=== PATIENT | female | born 1975 | race Caucasian/White ===

== ENCOUNTER 2019-05-17 19:34 | Emergency (ER) | payer MEDICAID, SELFPAY ==
[2019-05-17 19:56] VITALS: BP 103/67; PULSE 111; RESP 18; TEMP 37.1; O2SAT 98; BMI 17.9
--- NOTE | 2019-05-17 19:56 | XRR_ITS ---
PROCEDURE INFORMATION: Exam: XR Chest, 1 View Exam date and time: 05/17/2019 9:00 PM Age: 43 years old Clinical indication: Cough TECHNIQUE: Imaging protocol: XR of the chest Views: 1 view. COMPARISON: CR Chest 1 [place] [id number] 01/16/2019 9:43 AM FINDINGS: Lungs: Left basilar interstitial lung disease. This may represent active interstitial pneumonitis. This was present on examination of 01/16/2019 and thus could reflect interstitial fibrosis, also. COPD/chronic bronchitis/emphysema. Antecedent granulomatous disease. Pleural space: Unremarkable. No pleural effusion. No pneumothorax. Heart/Mediastinum: Arterial sclerosis with microcardia. Bones/joints: Scoliosis. XR/XR chest 1V portable [id number] IMPRESSION: 1. Left basilar interstitial lung disease which could reflect active interstitial pneumonitis or interstitial fibrosis based on clinical presentation. 2. COPD/chronic bronchitis/emphysema.
--- NOTE | 2019-05-17 19:57 | ECG_ITS ---
Measurements Intervals [place] Rate: 108 P: 83 CO: 136 QRS: 89 QRSD: 98 T: 71 QT: 328 QTc: 440 SINUS TACHYCARDIA POSSIBLE LEFT ATRIAL ENLARGEMENT [-0.1mV P WAVE IN V1/V2] POSSIBLE RIGHT VENTRICULAR CONDUCTION DELAY [RSR (QR) IN V1/V2] ABNORMAL RHYTHM ECG Compared to ECG 01/16/2019 09:26:40 Sinus rhythm no longer present Electronically Signed On 05-18-2019 20:47:22 CDT by Delilah Martínez M.D. [id number]
[2019-05-17 20:18] LABS: Basophils % 0.3 %; Eosinophils % 0.1 %; Hematocrit 39.1 % (37.0-47.0); Hemoglobin 12.6 g/dL (11.5-15.3); Lymphocytes # 1.5 10^3/uL (0.8-4.8); Lymphocytes % 9.3 %; Mean Corpuscular HGB Conc 32.2 g/dL (30.0-36.0); Mean Corpuscular Volume 86.9 fL (81-99); Mean Platelet Volume 9.5 fL (7.4-10.4); Monocytes # 1.3 10^3/uL (0.2-0.9); Monocytes % 8.2 %; Neutrophils # 12.8 10^3/uL (1.8-7.7); Neutrophils % 81.7 %; Nucleated Red Blood Cells % 0 %; Platelet Count 413 10^3/cmm (130-400); Red Cell Distribution Width 13.7 % (12.1-15.1); White Blood Count 15.7 10^3/uL (4.0-10.0)
[2019-05-17 20:37] LABS: Troponin(5th) Baseline 6 ng/mL (0-10)
--- NOTE | 2019-05-17 20:37 | W.ED.SOB ---
HPI - SOB/Dyspnea General: Chief Complaint: Shortness of Breath/Dyspnea Stated Complaint: sob Time Seen by Provider: 05/17/19 20:37 History of Present Illness: HPI Narrative: Patient is a 43-year-old female who comes in with shortness of breath and cough. Patient says symptoms started yesterday. She is also complaining of some sinus congestion, dizziness, constipation, nausea and vomiting. She has had one episode of vomiting since yesterday. She also feels like she has some body aches and a headache as well. She has not eaten much today and has only had a couple popsicles. Denies any diarrhea, or chest pain. She does states she feels a little short of breath and has some wheezing. Denies any fevers or chills. Associated symptoms: Reports abdominal pain, nausea and vomiting; Deny chest pain, fever(s), orthopnea or palpitations Review of Systems Const: Reports: body aches and change in appetite (loss of appetite); Denies: fever, chills or fatigue Eyes: Denies: change in vision or eye discomfort ENMT: Reports: nasal congestion and facial/sinus pain; Denies: throat pain, painful swallowing or nasal discharge Card: Denies: chest pain, palpitations, edema, swelling of feet/ankles, shortness of breath on exertion or shortness of breath when lying down Resp: Reports: shortness of breath and non-productive cough; Denies: productive cough GI: Reports: abdominal pain, nausea, vomiting and constipation; Denies: diarrhea or blood in stool : Denies: flank pain, painful urination or blood in urine Musc: Denies: neck pain, back pain or extremity swelling Skin/Breast: Denies: rash or new lesion Neuro: Reports: headache; Denies: numbness in extremities or weakness in extremities PFSH ED PFSH: Social History Smoking and tobacco status: former smoker Physical Exam Const: COMMON NORMALS: oriented x3 HENMT: COMMON NORMALS: normocephalic and external nose normal HEAD & SCALP: normocephalic NOSE: external nose normal and no nasal discharge MOUTH: oral and palatal mucosa normal THROAT: posterior oropharynx normal and uvula midline Neck/C-Spine: COMMON NORMALS: supple GENERAL: Yes normal visual inspection Resp: COMMON NORMALS: normal respiratory effort, no retractions and no use of accessory muscles AUSCULTATION: wheezes (mild) expiratory wheezes, left lower (wheezing) and right lower (wheezing) Cardio: COMMON NORMALS: regular rate, regular rhythm, S1 normal heart sound, S2 normal heart sound, no gallops, no clicks, no murmurs and peripheral pulses 2+ throughout RATE: regular rate RHYTHM: regular rhythm HEART SOUNDS: S1 normal and S2 normal PERIPHERAL PULSES: pulses 2+ throughout GI: COMMON NORMALS: normal to inspection, nondistended, normoactive bowel sounds, soft to palpation and no masses PALPATION: Yes soft and Yes tender Details: LLQ (mild) OTHER: Patient had left lower quadrant abdominal tenderness but no other abdominal tenderness. Negative McBurney's point and negative Conley sign. : COMMON NORMALS: Yes no CVA tenderness BLADDER/KIDNEY EXAM: Yes no CVA tenderness Back/Pelvis: COMMON NORMALS: no CVA tenderness Extremity: COMMON NORMALS: normal to inspection Neuro: COMMON NORMALS: oriented x3 and moves all extremities Skin: COMMON NORMALS: no rashes or lesions noted GENERAL SKIN EXAM: no rashes or lesions noted and dry skin Course Vital Signs: Vital signs: Vital Signs Temperature 98.0 F 05/17/19 23:12 Pulse Rate 84 05/17/19 23:12 Respiratory Rate 20 H 05/17/19 23:12 Blood Pressure 113/65 05/17/19 23:12 Pulse Oximetry 100 05/17/19 23:12 MDM - SOB/Dyspnea MDM Narrative: Medical decision making narrative: Patient is a 43-year-old female who comes into the ED with shortness of breath. Physical exam was remarkable for some wheezing. Labs are remarkable for white blood cell count of 15.7 and a sodium of 132. Influenza was negative. Chest x-ray showed possible left lower lobe pneumonia developing. EKG was normal sinus rhythm and troponins negative. Patient was given IV fluids and a breathing treatment a dose of an antibiotic and steroid as well. Patient was discharged with an antibiotic and a steroid prescription. She was told to follow-up with her PCP in 5 to 7 days for reevaluation. She was told to continue taking all her home meds including her prescribed inhalers. Patient understood and agreed with plan. She was informed to return to the ED if symptoms worsen. Lab Data: Attestation: I reviewed the patient's lab results. Labs: Lab Results 05/17/19 05/17/19 05/17/19 Range/Units 20:00 20:10 20:10 WBC 15.7 H (4.0-10.0) 10^3/ uL RBC 4.50 (4.1-5.3) 10^6/u L Hgb 12.6 (11.5-15.3) g/dL Hct 39.1 (37.0-47.0) % MCV 86.9 (81-99) fL MCH 28.0 (28.0-34.0) pg MCHC 32.2 (30.0-36.0) g/dL RDW 13.7 (12.1-15.1) % Plt Count 413 H (130-400) 10^3/c mm MPV 9.5 (7.4-10.4) fL Neut % (Auto) 81.7 % Lymph % (Auto) 9.3 % [place] % (Auto) 8.2 % Eos % (Auto) 0.1 % Baso % (Auto) 0.3 % Neut # (Auto) 12.8 H (1.8-7.7) 10^3/u L Lymph # (Auto) 1.5 (0.8-4.8) 10^3/u L [place] # (Auto) 1.3 H (0.2-0.9) 10^3/u L Eos # (Auto) 0.0 (0.0-0.8) 10^3/u L Baso # (Auto) 0.0 (0.0-0.1) 10^3/u L Nucleated RBC % (a uto) 0 % Nucleated RBCs # 0.0 /100WBC Sodium 132 L (136-145) mmol/L Potassium 3.8 (3.5-5.1) mmol/L Chloride 98 (98-107) mmol/L Carbon Dioxide 20 L (22-29) mmol/L Anion Gap 17.8 (5-19) BUN 11 (6-20) mg/dL Creatinine 0.8 (0.5-0.9) mg/dL GFR Calculation 78.3 L (90-130) mL/min Glucose 90 (65-115) mg/dL Calculated Osmolal ity 270 L (285-295) mOsm/k g Calcium 9.2 (8.5-10.5) mg/dL Total Bilirubin 0.4 (0.15-1.2) mg/dL AST 10 (0-32) U/L ALT 6 (0-33) U/L Alkaline Phosphata se 85 (35-105) IU/L Troponin T Baselin e (0-10) ng/mL Troponin T 120 Min [place] (0-10) ng/mL Delta Troponin T (0-10) ABS# NT-Pro-B Natriuret Pep 229 H (0-125) pg/mL Total Protein 7.3 (6.6-8.7) g/dL Albumin 3.9 (3.5-5.2) g/dL Globulin 3.4 (1.3-4.6) g/dL Influenza Type A A g Negative (Negative) POC Influenza B Ag Negative (Negative) 05/17/19 05/17/19 Range/Units 20:10 22:10 WBC (4.0-10.0) 10^3/ uL RBC (4.1-5.3) 10^6/u L Hgb (11.5-15.3) g/dL Hct (37.0-47.0) % MCV (81-99) fL MCH (28.0-34.0) pg MCHC (30.0-36.0) g/dL RDW (12.1-15.1) % Plt Count (130-400) 10^3/c mm MPV (7.4-10.4) fL Neut % (Auto) % Lymph % (Auto) % [place] % (Auto) % Eos % (Auto) % Baso % (Auto) % Neut # (Auto) (1.8-7.7) 10^3/u L Lymph # (Auto) (0.8-4.8) 10^3/u L [place] # (Auto) (0.2-0.9) 10^3/u L Eos # (Auto) (0.0-0.8) 10^3/u L Baso # (Auto) (0.0-0.1) 10^3/u L Nucleated RBC % (a uto) % Nucleated RBCs # /100WBC Sodium (136-145) mmol/L Potassium (3.5-5.1) mmol/L Chloride (98-107) mmol/L Carbon Dioxide (22-29) mmol/L Anion Gap (5-19) BUN (6-20) mg/dL Creatinine (0.5-0.9) mg/dL GFR Calculation (90-130) mL/min Glucose (65-115) mg/dL Calculated Osmolal ity (285-295) mOsm/k g Calcium (8.5-10.5) mg/dL Total Bilirubin (0.15-1.2) mg/dL AST (0-32) U/L ALT (0-33) U/L Alkaline Phosphata se (35-105) IU/L Troponin T Baselin e 6 (0-10) ng/mL Troponin T 120 Min [place] 6.00 (0-10) ng/mL Delta Troponin T 0 (0-10) ABS# NT-Pro-B Natriuret Pep (0-125) pg/mL Total Protein (6.6-8.7) g/dL Albumin (3.5-5.2) g/dL Globulin (1.3-4.6) g/dL Influenza Type A A g (Negative) POC Influenza B Ag (Negative) Imaging Data^: CXR: Attestation: I personally reviewed and interpreted this imaging study as follows: My impression: Possible left lower lobe pneumonia developing. Pending final radiology report. EKG Data^: EKG 1: Attestation: I personally reviewed and interpreted this EKG as follows: EKG Interpretation Date: 05/17/19 Interpretation: Sinus rhythm, P waves present, 87 bpm, no ST segment elevation or depression seen. Discharge Plan Discharge Patient Disposition: Home, Self-Care Clinical Impression: Pneumonia Qualifiers: Pneumonia type: due to unspecified organism Laterality: left Lung location: lower lobe of lung Qualified Code(s): J18.9 - Pneumonia, unspecified organism Condition: Stable Prescriptions: New azithromycin 250 mg tablet See Rx Instructions .ROUTE .COMPLEX Qty: 6 RF: 0 prednisone 20 mg tablet 20 mg PO TID 5 Days Qty: 15 RF: 0 No Action montelukast 5 mg tablet,chewable 5 mg PO DAILY RF: 0 prazosin 1 mg capsule 1 mg PO BEDTIME RF: 0 clonazepam 0.5 mg tablet 0.5 mg PO BID RF: 0 venlafaxine 150 mg capsule,extended release 24hr 150 mg PO DAILY RF: 0 mirtazapine 15 mg tablet 15 mg PO DAILY RF: 0 fluticasone propionate 50 mcg/actuation [place],Suspension See Rx Instructions .ROUTE .COMPLEX RF: 0 Spiriva with HandiHaler 18 mcg Capsule, W/Inhalation Device 1 cap INHALATION DAILY RF: 0 Symbicort 160-4.5 mcg/actuation Hfa Aerosol Inhaler 2 puff INHALATION BID RF: 0 Discharge Orders: Discharge Order (Routine); Ordered 05/17/19 Ordered By: hPi Aviles Referrals: Noemí Abbott FNP [Primary Care Provider] - Discharge Diet: Regular Discharge Activity: Increase activity as tolerated Patient Instructions: Pneumonia (ED) Activity Restrictions/Additional Instructions: Follow-up with your PCP in 5 to 7 days for reevaluation. Take full course of antibiotic as prescribed. Take full course of steroid as prescribed as well. You can take Tylenol or ibuprofen as needed for any fevers. Drink plenty of fluids and stay hydrated. Use your your home inhalers as needed and prescribed. Discharge Date/Time: 05/17/19 23:09 Coding Level of Care Code ED [employer] Operator for Stephanie Fwd Exam Comprehensive
[2019-05-17 20:40] VITALS: BP 104/64; PULSE 92; RESP 12; TEMP 36.7; O2SAT 98
[2019-05-17 20:41] LABS: Alanine Aminotransferase 6 U/L (0-33); Albumin Level 3.9 g/dL (3.5-5.2); Alkaline Phosphatase 85 IU/L (35-105); Anion Gap 17.8 (5-19); Aspartate Amino Transferase 10 U/L (0-32); Blood Urea Nitrogen 11 mg/dL (6-20); Calcium 9.2 mg/dL (8.5-10.5); Carbon Dioxide 20 mmol/L (22-29); Chloride 98 mmol/L (98-107); Creatinine Clr Calc Pharmacy 90.8997; Globulin 3.4 g/dL (1.3-4.6); Glomerular Filtration Rate 78.3 mL/min (90-130); Glucose 90 mg/dL (65-115); NT Pro B Type Natriuretic Pept 229 pg/mL (0-125); Osmolality Calculated 270 mOsm/kg (285-295); Potassium 3.8 mmol/L (3.5-5.1); Sodium 132 mmol/L (136-145); Total Bilirubin 0.4 mg/dL (0.15-1.2); Total Protein 7.3 g/dL (6.6-8.7)
[2019-05-17 20:47] LABS: Influenza A by IFA Negative (Negative); Influenza B by IFA Negative (Negative)
[2019-05-17] MEDS: ipratropium-albuterol 3 mL Neb INHALATION (21:22)
[2019-05-17 21:23] VITALS: PULSE 97; RESP 22; O2SAT 99
[2019-05-17] MEDS: sodium chloride 0.9% 1,000 ML 999 ML IV (21:23)
[2019-05-17 21:27] VITALS: PULSE 93; RESP 28; O2SAT 99
--- NOTE | 2019-05-17 21:57 | ECG_ITS ---
Measurements Intervals [place] Rate: 87 P: 81 FL: 161 QRS: 84 QRSD: 98 T: 70 QT: 380 QTc: 458 SINUS RHYTHM POSSIBLE RIGHT VENTRICULAR CONDUCTION DELAY [RSR (QR) IN V1/V2] Compared to ECG 01/16/2019 09:26:40 No significant changes Electronically Signed On 05-18-2019 20:51:48 CDT by Delilah Martínez M.D. [id number]
[2019-05-17 22:41] LABS: Troponin 5 2HR Delta 0 ABS# (0-10)
[2019-05-17] MEDS: predniSONE 20 mg Tablet 60 MG PO (22:44)
[2019-05-17] MEDS: azithromycin 250 mg Tablet 500 MG PO (22:45)
[2019-05-17 23:12] VITALS: BP 113/65; PULSE 84; RESP 20; TEMP 36.7; O2SAT 100
[2019-05-19 17:10] LABS: ABG PCO2 28.9 mmHg (35-45); ABG PH Result 7.48 (7.35-7.45); Arterial Blood Gas Hematocrit 37.2 % (37-47); Blood Gas Allen Test Pos; Blood Gas Sample Site Radial, right; Blood Gas Sample Type Arterial; HCO3 ABG 21.6 mmol/L (22-26); PO2 ABG 91.4 mmHg (80.0-100.0)
== END 2019-05-17 23:09 | disposition home or self-care (01) ==
PROVIDERS: Emergency Medicine; Emergency Provider Physician Assistant; PCP Nurse Practitioner
DX: J18.9 Pneumonia, unspecified organism (principal); Z87.891 Personal history of nicotine dependence
CPT/HCPCS: 12345; 36600; 71045; 80053; 82803; 83880; 84484; 85025; 87804; 93005; 94640; 96360; 99283; 99284; J7030; J7512; Q0144

== ENCOUNTER → 2019-07-24 07:41 | Outpatient (BNVA) | payer MEDICAID, SELFPAY | PROVIDERS: PCP Nurse Practitioner; Visit Provider Nurse Practitioner | DX: F41.0 Panic disorder [episodic paroxysmal anxiety] (principal); F41.1 Generalized anxiety disorder; F33.1 Major depressive disorder, recurrent, moderate | CPT/HCPCS: 99213 ==

== ENCOUNTER 2020-03-05 03:53 | Emergency (ER) | payer MEDICAID, SELFPAY ==
[2020-03-05 03:56] VITALS: BP 99/60; PULSE 84; RESP 19; TEMP 36.7; O2SAT 99; BMI 17.3
--- NOTE | 2020-03-05 04:13 | XRR_ITS ---
PROCEDURE INFORMATION: Exam: XR Chest, 1 View Exam date and time: 03/05/2020 4:21 AM Age: 44 years old Clinical indication: Cough and shortness of breath; Additional info: Dyspnea/cough TECHNIQUE: Imaging protocol: XR of the chest Views: 1 view. COMPARISON: CR XR chest 1V portable [id number] 05/17/2019 8:50 PM FINDINGS: Lungs: There is a background of centrilobular emphysema. There are increased linear opacities present in the right upper hemithorax likely representing atelectasis versus parenchymal and pleural scarring. Pleural space: Unremarkable. No pleural effusion. No pneumothorax. Heart/Mediastinum: Unremarkable. No cardiomegaly. Bones/joints: Unremarkable. XR/XR chest 1V portable [id number] IMPRESSION: Linear opacity seen in the right upper hemithorax likely represents atelectasis versus parenchymal or pleural scarring.
--- NOTE | 2020-03-05 04:13 | ECG_ITS ---
[facility] Test Date: 2020-03-05 Pat Name: Nadia Grant Department: Room: Gender: Female [employer] Faculty Member: : 1975 Requested By: Maura Mccallum Order Number: [id number] Nava MD: Eric Parkinson M.D. Measurements Intervals [place] Rate: 73 P: 82 IA: 175 QRS: 85 QRSD: 96 T: 81 QT: 386 QTc: 426 Interpretive Statements SINUS RHYTHM Compared to ECG 05/17/2019 22:09:58 No significant changes Electronically Signed On 03-05-2020 16:41:44 [employer] by Eric Parkinson M.D. [id number]
[2020-03-05 04:32] VITALS: BP 115/67; PULSE 81; RESP 20; O2SAT 98
[2020-03-05] MEDS: albuterol 8 gm MDI 6 PUFF INHALATION (04:41)
[2020-03-05 04:42] VITALS: PULSE 78; O2SAT 94
[2020-03-05 04:56] VITALS: PULSE 82
--- NOTE | 2020-03-05 05:01 | W.ED.SOB ---
Documented by User: Maura Guthrie 03/05/20 05:20 HPI - SOB/Dyspnea General: Chief Complaint: Shortness of Breath/Dyspnea Stated Complaint: trouble breathing/copd/headache/can't keep water d Time Seen by Provider: 03/05/20 04:13 Source: patient Mode of arrival: ambulatory Limitations: no limitations History of Present Illness: HPI Narrative: Nadia is a nice 44-year-old female who comes in complaining of difficulty breathing, subjective fever and vomiting. Just sore throat and diarrhea. Symptoms been present for the past 24 hours. States that she feels like she is coming down with the flu. She never measured her temperature at home. She states he feels better with rest but is not tried anything else for her symptoms other than this. She has not had any known known ill contacts. She denies any chest pain. She denies any other complaints or concerns. Associated symptoms: Deny abdominal pain, chest congestion, chest pain, diaphoresis, dizziness, extremity pain, fever(s), hemoptysis, lightheadedness, nausea, orthopnea, palpitations, syncope or vomiting Review of Systems Const: Denies: fever(s), chills, body aches, fatigue, malaise or diaphoresis Eyes: Denies: change in vision, blurry vision, photophobia, eye discomfort, eye discharge, eye redness or yellow eyes ENMT: Denies: throat pain, odynophagia, hoarseness, swelling of lips/tongue, ear or mastoid pain, ear discharge, change in hearing or nasal discharge Card: Denies: chest pain, palpitations, irregular heart rhythm, edema, lightheadedness, syncope, pre-syncope, dyspnea on exertion or orthopnea Resp: Reports: dyspnea and non-productive cough; Denies: productive cough, wheezing, hemoptysis or chest congestion GI: Denies: abdominal pain, nausea, vomiting, hematemesis, coffee ground emesis, heartburn, diarrhea, constipation, GI cramping, hematochezia or melena : Denies: flank pain, dysuria, urinary frequency, urinary urgency or hematuria Musc: Denies: neck pain, back pain, extremity pain, extremity swelling, joint pain, joint swelling, joint redness, joint warmth or joint stiffness Skin/Breast: Denies: rash, pruritus, erythema, skin pain or skin tenderness Neuro: Denies: headache(s), numbness in extremities, weakness in extremities, sensory changes, lack of coordination, difficulty walking, dizziness, vertigo, confusion, Slurred speech present or seizure-like activity Sohail/Lymph: Denies: easy bruising, easy bleeding, petechiae, purpura or enlarged lymph nodes All/Imm: Denies: urticaria, throat swelling, tongue swelling, facial swelling or acute wheezing PFSH ED PFSH: Medical History Generalized anxiety disorder Moderate episode of recurrent major depressive disorder Panic disorder [episodic paroxysmal anxiety] Social History Smoking and tobacco status: former smoker Physical Exam Const: COMMON NORMALS: no acute distress, patient oriented x3, no limitations and alert GENERAL APPEARANCE: cooperative HENMT: COMMON NORMALS: normocephalic, atraumatic, external ears normal, EAC's normal and Normal external nose present HEAD & SCALP: normal to inspection, normocephalic and atraumatic FACE & SINUS: normal facial exam and face symmetric NOSE: Normal external nose present and Normal nares present EXTERNAL EAR: Yes external ears normal EXTERNAL AUDITORY CANAL: EAC's normal MOUTH: Normal oral and palatal mucosa present, lip normal and tongue normal Eye: COMMON NORMALS: Equal, round and reactive pupils present and conjunctivae normal GENERAL EYE: appearance normal, both eyes and all related structures ALIGNMENT: Yes alignment normal PERIORBITAL: periorbital findings normal EYELID: eyelids normal CONJUNCTIVA: Yes conjunctivae normal SCLERA: sclerae normal PUPIL: Yes Equal, round and reactive pupils present Neck/C-Spine: COMMON NORMALS: full ROM, no lymphadenopathy, supple, no meningeal signs and no JVD GENERAL: Yes normal visual inspection and Yes trachea midline Chest: COMMONS NORMALS: normal inspection of the chest and normal palpation of entire chest wall Resp: COMMON NORMALS: No retractions, No use of accessory muscles and clear to auscultation bilaterally EFFORT & INSPECTION: Yes able to speak in complete sentences and Yes symmetric chest movement AUSCULTATION: clear to auscultation bilaterally, no crackles, no rales, rhonchi, wheezes and diminished lung sounds Cardio: COMMON NORMALS: no JVD, regular rate, regular rhythm, S1 normal heart sound present and S2 normal heart sound present RATE: regular rate RHYTHM: regular rhythm HEART SOUNDS: S1 normal heart sound present, S2 normal heart sound present, no click, no gallops, no murmurs and no rubs GI: COMMON NORMALS: Soft to palpation and No hepatosplenomegaly present PALPATION: Yes Soft to palpation, No Tenderness to palpation present (GI), No Guarding due to palpation present (GI), No Rigid due to palpation, Yes No hepatosplenomegaly present, No Hernia present, No Palpable mass present and No Pulsatile mass present : COMMON NORMALS: Yes no CVA tenderness BLADDER/KIDNEY EXAM: Yes no CVA tenderness EXTERNAL FEMALE EXAM: No Hernia present Back/Pelvis: COMMON NORMALS: no CVA tenderness, thoracic and lumbar spine normal to inspection, no thoracic nor lumbar tenderness and thoraco-lumbar ROM normal Extremity: COMMON NORMALS: normal to inspection, full ROM, capillary refill normal, no joint enlargement, no clubbing, cyanosis or edema and no calf tenderness Neuro: COMMON NORMALS: patient oriented x3, CN's II-XII intact bilaterally, moves all extremities, no focal motor deficits and no sensory deficits noted SENSORIUM/ORIENTATION: Yes alert MENINGEAL SIGNS: Yes no meningeal signs SPEECH: speech normal Psych: COMMON NORMALS: mental status grossly normal, Normal thought process present, cooperative, normal affect, speech normal and activity/motor behavior normal SPEECH: Yes normal speech THOUGHT PROCESS: Normal thought process present Skin: COMMON NORMALS: no rashes or lesions noted, turgor normal, no jaundice, no petechiae and no mottling GENERAL SKIN EXAM: no rashes or lesions noted and turgor normal Course Vital Signs: Vital signs: Vital Signs Temperature 98.1 F 03/05/20 03:56 Pulse Rate 75 03/05/20 06:02 Respiratory Rate 19 H 03/05/20 06:02 Blood Pressure 99/54 03/05/20 06:02 Pulse Oximetry 95 03/05/20 06:02 MDM - SOB/Dyspnea Lab Data: Labs: Lab Results 03/05/20 03/05/20 03/05/20 Range/Units 04:49 05:15 05:20 WBC (4.0-10.0) 10^3/ uL RBC (4.1-5.3) 10^6/u L Hgb (11.5-15.3) g/dL Hct (37.0-47.0) % MCV (81-99) fL MCH (28.0-34.0) pg MCHC (30.0-36.0) g/dL RDW (12.1-15.1) % Plt Count (130-400) 10^3/c mm MPV (7.4-10.4) fL Neut % (Auto) % Lymph % (Auto) % Bates % (Auto) % Eos % (Auto) % Baso % (Auto) % Neut # (Auto) (1.8-7.7) 10^3/u L Lymph # (Auto) (0.8-4.8) 10^3/u L Bates # (Auto) (0.2-0.9) 10^3/u L Eos # (Auto) (0.0-0.8) 10^3/u L Baso # (Auto) (0.0-0.1) 10^3/u L Nucleated RBC % (a uto) % Nucleated RBCs # /100WBC PT (12.1-14.9) SECO NDS INR (0.8-1.2) Fibrinogen (174-498) mg/dL D-Dimer (0-0.59) ug/mIFE U Specimen Type Arterial Sample Site Radial, right ABG pH 7.52 H (7.35-7.45) ABG pCO2 26.4 L (35-45) mmHg ABG pO2 102.0 H (80.0-100.0) mmH g ABG HCO3 21.5 L (22-26) mmol/L ABG Base Excess -0.3 (-2.0-2.0) mmol/ L Gu[place]ro Test Pos Hematocrit 37.0 (37-47) % O2 Delivery Device Room air FiO2 21.0 % Tarp Repairer ID Jlg Sodium (136-145) mmol/L Potassium (3.5-5.1) mmol/L Chloride (98-107) mmol/L Carbon Dioxide (22-29) mmol/L Anion Gap (5-19) BUN (6-20) mg/dL Creatinine (0.5-0.9) mg/dL GFR Calculation (90-130) mL/min Glucose (65-115) mg/dL Calculated Osmolal ity (285-295) mOsm/k g Lactic Acid (0.5-2.2) mmol/L Calcium (8.5-10.5) mg/dL Magnesium (1.7-2.3) mg/dL Total Bilirubin (0.15-1.2) mg/dL AST (0-32) U/L ALT (0-33) U/L Alkaline Phosphata se (35-105) IU/L Lactate Dehydrogen ase (135-214) U/L C-Reactive Protein (0.0-4.9) mg/L Total Protein (6.6-8.7) g/dL Albumin (3.5-5.2) g/dL Globulin (1.3-4.6) g/dL Procalcitonin (0-0.5) ng/mL Influenza Type A A g Negative (Negative) Influenza Type B A g Negative (Negative) SARS-CoV-2 Ag (Rap id) Negative (Negative) 03/05/20 03/05/20 03/05/20 Range/Units 05:39 05:39 05:39 WBC 11.8 H (4.0-10.0) 10^3/ uL RBC 4.50 (4.1-5.3) 10^6/u L Hgb 12.7 (11.5-15.3) g/dL Hct 39.2 (37.0-47.0) % MCV 87.1 (81-99) fL MCH 28.2 (28.0-34.0) pg MCHC 32.4 (30.0-36.0) g/dL RDW 13.9 (12.1-15.1) % Plt Count 352 (130-400) 10^3/c mm MPV 10.1 (7.4-10.4) fL Neut % (Auto) 75.5 % Lymph % (Auto) 8.5 % Bates % (Auto) 10.8 % Eos % (Auto) 4.5 % Baso % (Auto) 0.4 % Neut # (Auto) 8.92 H (1.8-7.7) 10^3/u L Lymph # (Auto) 1.0 (0.8-4.8) 10^3/u L Bates # (Auto) 1.3 H (0.2-0.9) 10^3/u L Eos # (Auto) 0.5 (0.0-0.8) 10^3/u L Baso # (Auto) 0.1 (0.0-0.1) 10^3/u L Nucleated RBC % (a uto) 0 % Nucleated RBCs # 0.0 /100WBC PT 13.30 (12.1-14.9) SECO NDS INR 0.98 (0.8-1.2) Fibrinogen 410 (174-498) mg/dL D-Dimer 0.50 (0-0.59) ug/mIFE U Specimen Type Sample Site ABG pH (7.35-7.45) ABG pCO2 (35-45) mmHg ABG pO2 (80.0-100.0) mmH g ABG HCO3 (22-26) mmol/L ABG Base Excess (-2.0-2.0) mmol/ L Guerrero Test Hematocrit (37-47) % O2 Delivery Device FiO2 % Tarp Repairer ID Sodium 137 (136-145) mmol/L Potassium 4.0 (3.5-5.1) mmol/L Chloride 106 (98-107) mmol/L Carbon Dioxide 22 (22-29) mmol/L Anion Gap 13.0 (5-19) BUN 7 (6-20) mg/dL Creatinine 0.5 (0.5-0.9) mg/dL GFR Calculation 134.0 H (90-130) mL/min Glucose 106 (65-115) mg/dL Calculated Osmolal ity 282 L (285-295) mOsm/k g Lactic Acid (0.5-2.2) mmol/L Calcium 8.7 (8.5-10.5) mg/dL Magnesium 1.9 (1.7-2.3) mg/dL Total Bilirubin 0.6 (0.15-1.2) mg/dL AST 12 (0-32) U/L ALT 9 (0-33) U/L Alkaline Phosphata se 88 (35-105) IU/L Lactate Dehydrogen ase 173 (135-214) U/L C-Reactive Protein 61.6 H (0.0-4.9) mg/L Total Protein 6.5 L (6.6-8.7) g/dL Albumin 3.8 (3.5-5.2) g/dL Globulin 2.7 (1.3-4.6) g/dL Procalcitonin 0.03 (0-0.5) ng/mL Influenza Type A A g (Negative) Influenza Type B A g (Negative) SARS-CoV-2 Ag (Rap id) (Negative) 03/05/20 Range/Units 05:39 WBC (4.0-10.0) 10^3/ uL RBC (4.1-5.3) 10^6/u L Hgb (11.5-15.3) g/dL Hct (37.0-47.0) % MCV (81-99) fL MCH (28.0-34.0) pg MCHC (30.0-36.0) g/dL RDW (12.1-15.1) % Plt Count (130-400) 10^3/c mm MPV (7.4-10.4) fL Neut % (Auto) % Lymph % (Auto) % Bates % (Auto) % Eos % (Auto) % Baso % (Auto) % Neut # (Auto) (1.8-7.7) 10^3/u L Lymph # (Auto) (0.8-4.8) 10^3/u L Bates # (Auto) (0.2-0.9) 10^3/u L Eos # (Auto) (0.0-0.8) 10^3/u L Baso # (Auto) (0.0-0.1) 10^3/u L Nucleated RBC % (a uto) % Nucleated RBCs # /100WBC PT (12.1-14.9) SECO NDS INR (0.8-1.2) Fibrinogen (174-498) mg/dL D-Dimer (0-0.59) ug/mIFE U Specimen Type Sample Site ABG pH (7.35-7.45) ABG pCO2 (35-45) mmHg ABG pO2 (80.0-100.0) mmH g ABG HCO3 (22-26) mmol/L ABG Base Excess (-2.0-2.0) mmol/ L Guerrero Test Hematocrit (37-47) % O2 Delivery Device FiO2 % Tarp Repairer ID Sodium (136-145) mmol/L Potassium (3.5-5.1) mmol/L Chloride (98-107) mmol/L Carbon Dioxide (22-29) mmol/L Anion Gap (5-19) BUN (6-20) mg/dL Creatinine (0.5-0.9) mg/dL GFR Calculation (90-130) mL/min Glucose (65-115) mg/dL Calculated Osmolal ity (285-295) mOsm/k g Lactic Acid 1.1 (0.5-2.2) mmol/L Calcium (8.5-10.5) mg/dL Magnesium (1.7-2.3) mg/dL Total Bilirubin (0.15-1.2) mg/dL AST (0-32) U/L ALT (0-33) U/L Alkaline Phosphata se (35-105) IU/L Lactate Dehydrogen ase (135-214) U/L C-Reactive Protein (0.0-4.9) mg/L Total Protein (6.6-8.7) g/dL Albumin (3.5-5.2) g/dL Globulin (1.3-4.6) g/dL Procalcitonin (0-0.5) ng/mL Influenza Type A A g (Negative) Influenza Type B A g (Negative) SARS-CoV-2 Ag (Rap id) (Negative) EKG Data^: EKG 1: Attestation: I personally reviewed and interpreted this EKG as follows: EKG Interpretation Date: 03/05/20 EKG interpretation time: 05:19 Interpretation: Normal sinus rhythm at 73 beats a minute, normal axis, no blocks, normal intervals, nonspecific T wave changes. Discharge Plan Discharge Patient Disposition: Home Clinical Impression: Acute exacerbation of chronic obstructive airways disease Condition: Stable Prescriptions: New doxycycline hyclate 100 mg capsule 100 mg PO BID 10 Days Qty: 20 RF: 0 Medrol (Keven) 4 mg tablets,dose pack See Rx Instructions .ROUTE .COMPLEX Qty: 21 RF: 0 albuterol sulfate 2.5 mg /3 mL (0.083 %) solution for nebulization 2.5 mg inhalation Q4H PRN (Reason: shortness of breath or wheezing) Qty: 90 RF: 0 No Action venlafaxine 150 mg capsule,extended release 24hr 150 mg PO DAILY Qty: 30 RF: 2 mirtazapine 15 mg tablet 15 mg PO .HS Qty: 30 RF: 2 prazosin 1 mg capsule 3 mg PO BEDTIME Qty: 90 RF: 2 clonazepam 0.5 mg tablet 0.5 mg PO BID PRN (Reason: anxiety) Qty: 60 RF: 2 montelukast 5 mg tablet,chewable 5 mg PO DAILY RF: 0 fluticasone propionate 50 mcg/actuation [place],Suspension See Rx Instructions .ROUTE .COMPLEX RF: 0 Spiriva with HandiHaler 18 mcg Capsule, W/Inhalation Device 1 cap INHALATION DAILY RF: 0 Symbicort 160-4.5 mcg/actuation Hfa Aerosol Inhaler 2 puff INHALATION BID RF: 0 azithromycin 250 mg tablet See Rx Instructions .ROUTE .COMPLEX Qty: 6 RF: 0 Discharge Orders: Discharge ED (Routine); Ordered 03/05/20 Ordered By: Genaro Barker Referrals: Noemí Abbott FNP [Primary Care Provider] - Discharge Diet: Usual diet Discharge Activity: Limit activity as instructed Activity Restrictions/Additional Instructions: You were tested for COVID-19. Remain in self quarantine until the results are available. Use albuterol every 4 hours as needed for shortness of breath monitor your oxygen sats with the finger saturation monitor given to you. If you have persistent oxygen sats below 90% return to the emergency room. Follow-up with your primary care doctor next week return to the ER if symptoms worsen Coding Level of Care Code ED Junior Estimator for Chg Fwd Exam Comprehensive Documented by User: Genaro Barker, 03/05/20 07:28 HPI - SOB/Dyspnea General: Chief Complaint: Shortness of Breath/Dyspnea Stated Complaint: trouble breathing/copd/headache/can't keep water d Time Seen by Provider: 03/05/20 04:13 PFS ED PFSH: Medical History Generalized anxiety disorder Moderate episode of recurrent major depressive disorder Panic disorder [episodic paroxysmal anxiety] Social History Smoking and tobacco status: former smoker Course Vital Signs: Vital signs: Vital Signs Temperature 98.1 F 03/05/20 03:56 Pulse Rate 75 03/05/20 06:02 Respiratory Rate 19 H 03/05/20 06:02 Blood Pressure 99/54 03/05/20 06:02 Pulse Oximetry 95 03/05/20 06:02 MDM - SOB/Dyspnea MDM Narrative: Medical decision making narrative: Care assumed a change of shift from Dr. Steven Varma rapid antigen was negative. Patient saturations are 99 to 100% on room air on exam her chest is clear heart regular. Labs and x-ray reviewed with the patient. I believe we can safely discharge her home with an oxygen saturation monitor instructions for self quarantine prednisone and doxycycline as well as albuterol every 4 hours as needed for cough shortness of breath or wheezing. Patient structured return if she had any worsening problems otherwise follow-up with her primary care doctor early next week. Lab Data: Labs: Lab Results 03/05/20 03/05/20 03/05/20 Range/Units 04:49 05:15 05:20 WBC (4.0-10.0) 10^3/ uL RBC (4.1-5.3) 10^6/u L Hgb (11.5-15.3) g/dL Hct (37.0-47.0) % MCV (81-99) fL MCH (28.0-34.0) pg MCHC (30.0-36.0) g/dL RDW (12.1-15.1) % Plt Count (130-400) 10^3/c mm MPV (7.4-10.4) fL Neut % (Auto) % Lymph % (Auto) % Bates % (Auto) % Eos % (Auto) % Baso % (Auto) % Neut # (Auto) (1.8-7.7) 10^3/u L Lymph # (Auto) (0.8-4.8) 10^3/u L Bates # (Auto) (0.2-0.9) 10^3/u L Eos # (Auto) (0.0-0.8) 10^3/u L Baso # (Auto) (0.0-0.1) 10^3/u L Nucleated RBC % (a uto) % Nucleated RBCs # /100WBC PT (12.1-14.9) SECO NDS INR (0.8-1.2) Fibrinogen (174-498) mg/dL D-Dimer (0-0.59) ug/mIFE U Specimen Type Arterial Sample Site Radial, right ABG pH 7.52 H (7.35-7.45) ABG pCO2 26.4 L (35-45) mmHg ABG pO2 102.0 H (80.0-100.0) mmH g ABG HCO3 21.5 L (22-26) mmol/L ABG Base Excess -0.3 (-2.0-2.0) mmol/ L Guerrero Test Pos Hematocrit 37.0 (37-47) % O2 Delivery Device Room air FiO2 21.0 % Tarp Repairer ID Jlg Sodium (136-145) mmol/L Potassium (3.5-5.1) mmol/L Chloride (98-107) mmol/L Carbon Dioxide (22-29) mmol/L Anion Gap (5-19) BUN (6-20) mg/dL Creatinine (0.5-0.9) mg/dL GFR Calculation (90-130) mL/min Glucose (65-115) mg/dL Calculated Osmolal ity (285-295) mOsm/k g Lactic Acid (0.5-2.2) mmol/L Calcium (8.5-10.5) mg/dL Magnesium (1.7-2.3) mg/dL Total Bilirubin (0.15-1.2) mg/dL AST (0-32) U/L ALT (0-33) U/L Alkaline Phosphata se (35-105) IU/L Lactate Dehydrogen ase (135-214) U/L C-Reactive Protein (0.0-4.9) mg/L Total Protein (6.6-8.7) g/dL Albumin (3.5-5.2) g/dL Globulin (1.3-4.6) g/dL Procalcitonin (0-0.5) ng/mL Influenza Type A A g Negative (Negative) Influenza Type B A g Negative (Negative) SARS-CoV-2 Ag (Rap id) Negative (Negative) 03/05/20 03/05/20 03/05/20 Range/Units 05:39 05:39 05:39 WBC 11.8 H (4.0-10.0) 10^3/ uL RBC 4.50 (4.1-5.3) 10^6/u L Hgb 12.7 (11.5-15.3) g/dL Hct 39.2 (37.0-47.0) % MCV 87.1 (81-99) fL MCH 28.2 (28.0-34.0) pg MCHC 32.4 (30.0-36.0) g/dL RDW 13.9 (12.1-15.1) % Plt Count 352 (130-400) 10^3/c mm MPV 10.1 (7.4-10.4) fL Neut % (Auto) 75.5 % Lymph % (Auto) 8.5 % Bates % (Auto) 10.8 % Eos % (Auto) 4.5 % Baso % (Auto) 0.4 % Neut # (Auto) 8.92 H (1.8-7.7) 10^3/u L Lymph # (Auto) 1.0 (0.8-4.8) 10^3/u L Bates # (Auto) 1.3 H (0.2-0.9) 10^3/u L Eos # (Auto) 0.5 (0.0-0.8) 10^3/u L Baso # (Auto) 0.1 (0.0-0.1) 10^3/u L Nucleated RBC % (a uto) 0 % Nucleated RBCs # 0.0 /100WBC PT 13.30 (12.1-14.9) SECO NDS INR 0.98 (0.8-1.2) Fibrinogen 410 (174-498) mg/dL D-Dimer 0.50 (0-0.59) ug/mIFE U Specimen Type Sample Site ABG pH (7.35-7.45) ABG pCO2 (35-45) mmHg ABG pO2 (80.0-100.0) mmH g ABG HCO3 (22-26) mmol/L ABG Base Excess (-2.0-2.0) mmol/ L Gu[place]ro Test Hematocrit (37-47) % O2 Delivery Device FiO2 % Tarp Repairer ID Sodium 137 (136-145) mmol/L Potassium 4.0 (3.5-5.1) mmol/L Chloride 106 (98-107) mmol/L Carbon Dioxide 22 (22-29) mmol/L Anion Gap 13.0 (5-19) BUN 7 (6-20) mg/dL Creatinine 0.5 (0.5-0.9) mg/dL GFR Calculation 134.0 H (90-130) mL/min Glucose 106 (65-115) mg/dL Calculated Osmolal ity 282 L (285-295) mOsm/k g Lactic Acid (0.5-2.2) mmol/L Calcium 8.7 (8.5-10.5) mg/dL Magnesium 1.9 (1.7-2.3) mg/dL Total Bilirubin 0.6 (0.15-1.2) mg/dL AST 12 (0-32) U/L ALT 9 (0-33) U/L Alkaline Phosphata se 88 (35-105) IU/L Lactate Dehydrogen ase 173 (135-214) U/L C-Reactive Protein 61.6 H (0.0-4.9) mg/L Total Protein 6.5 L (6.6-8.7) g/dL Albumin 3.8 (3.5-5.2) g/dL Globulin 2.7 (1.3-4.6) g/dL Procalcitonin 0.03 (0-0.5) ng/mL Influenza Type A A g (Negative) Influenza Type B A g (Negative) SARS-CoV-2 Ag (Rap id) (Negative) 03/05/20 Range/Units 05:39 WBC (4.0-10.0) 10^3/ uL RBC (4.1-5.3) 10^6/u L Hgb (11.5-15.3) g/dL Hct (37.0-47.0) % MCV (81-99) fL MCH (28.0-34.0) pg MCHC (30.0-36.0) g/dL RDW (12.1-15.1) % Plt Count (130-400) 10^3/c mm MPV (7.4-10.4) fL Neut % (Auto) % Lymph % (Auto) % Bates % (Auto) % Eos % (Auto) % Baso % (Auto) % Neut # (Auto) (1.8-7.7) 10^3/u L Lymph # (Auto) (0.8-4.8) 10^3/u L Bates # (Auto) (0.2-0.9) 10^3/u L Eos # (Auto) (0.0-0.8) 10^3/u L Baso # (Auto) (0.0-0.1) 10^3/u L Nucleated RBC % (a uto) % Nucleated RBCs # /100WBC PT (12.1-14.9) SECO NDS INR (0.8-1.2) Fibrinogen (174-498) mg/dL D-Dimer (0-0.59) ug/mIFE U Specimen Type Sample Site ABG pH (7.35-7.45) ABG pCO2 (35-45) mmHg ABG pO2 (80.0-100.0) mmH g ABG HCO3 (22-26) mmol/L ABG Base Excess (-2.0-2.0) mmol/ L Guerrero Test Hematocrit (37-47) % O2 Delivery Device FiO2 % Tarp Repairer ID Sodium (136-145) mmol/L Potassium (3.5-5.1) mmol/L Chloride (98-107) mmol/L Carbon Dioxide (22-29) mmol/L Anion Gap (5-19) BUN (6-20) mg/dL Creatinine (0.5-0.9) mg/dL GFR Calculation (90-130) mL/min Glucose (65-115) mg/dL Calculated Osmolal ity (285-295) mOsm/k g Lactic Acid 1.1 (0.5-2.2) mmol/L Calcium (8.5-10.5) mg/dL Magnesium (1.7-2.3) mg/dL Total Bilirubin (0.15-1.2) mg/dL AST (0-32) U/L ALT (0-33) U/L Alkaline Phosphata se (35-105) IU/L Lactate Dehydrogen ase (135-214) U/L C-Reactive Protein (0.0-4.9) mg/L Total Protein (6.6-8.7) g/dL Albumin (3.5-5.2) g/dL Globulin (1.3-4.6) g/dL Procalcitonin (0-0.5) ng/mL Influenza Type A A g (Negative) Influenza Type B A g (Negative) SARS-CoV-2 Ag (Rap id) (Negative) Discharge Plan Discharge Patient Disposition: Home Clinical Impression: Acute exacerbation of chronic obstructive airways disease Condition: Stable Prescriptions: New doxycycline hyclate 100 mg capsule 100 mg PO BID 10 Days Qty: 20 RF: 0 Medrol (Keven) 4 mg tablets,dose pack See Rx Instructions .ROUTE .COMPLEX Qty: 21 RF: 0 albuterol sulfate 2.5 mg /3 mL (0.083 %) solution for nebulization 2.5 mg inhalation Q4H PRN (Reason: shortness of breath or wheezing) Qty: 90 RF: 0 No Action venlafaxine 150 mg capsule,extended release 24hr 150 mg PO DAILY Qty: 30 RF: 2 mirtazapine 15 mg tablet 15 mg PO .HS Qty: 30 RF: 2 prazosin 1 mg capsule 3 mg PO BEDTIME Qty: 90 RF: 2 clonazepam 0.5 mg tablet 0.5 mg PO BID PRN (Reason: anxiety) Qty: 60 RF: 2 montelukast 5 mg tablet,chewable 5 mg PO DAILY RF: 0 fluticasone propionate 50 mcg/actuation [place],Suspension See Rx Instructions .ROUTE .COMPLEX RF: 0 Spiriva with HandiHaler 18 mcg Capsule, W/Inhalation Device 1 cap INHALATION DAILY RF: 0 Symbicort 160-4.5 mcg/actuation Hfa Aerosol Inhaler 2 puff INHALATION BID RF: 0 azithromycin 250 mg tablet See Rx Instructions .ROUTE .COMPLEX Qty: 6 RF: 0 Discharge Orders: Discharge ED (Routine); Ordered 03/05/20 Ordered By: Genaro Barker Referrals: Noemí Abbott FNP [Primary Care Provider] - Discharge Diet: Usual diet Discharge Activity: Limit activity as instructed Activity Restrictions/Additional Instructions: You were tested for COVID-19. Remain in self quarantine until the results are available. Use albuterol every 4 hours as needed for shortness of breath monitor your oxygen sats with the finger saturation monitor given to you. If you have persistent oxygen sats below 90% return to the emergency room. Follow-up with your primary care doctor next week return to the ER if symptoms worsen Coding Level of Care Code ED Junior Estimator for Chg Fwd Exam Comprehensive
[2020-03-05 05:03] LABS: ABG PCO2 26.4 mmHg (35-45); ABG PH Result 7.52 (7.35-7.45); Base Excess ABG -0.3 mmol/L (-2.0-2.0); Blood Gas Allen Test Pos; Blood Gas Sample Site Radial, right; Blood Gas Sample Type Arterial; HCO3 ABG 21.5 mmol/L (22-26); Oxygen Device ROOM AIR
[2020-03-05] MEDS: sodium chloride 0.9% 1,000 ML 150 ML IV (05:15)
[2020-03-05] MEDS: dexamethasone 4 mg/mL INJ 6 MG IVP (05:20)
[2020-03-05 05:45] LABS: Basophils # 0.1 10^3/uL (0.0-0.1); Basophils % 0.4 %; Eosinophils # 0.5 10^3/uL (0.0-0.8); Eosinophils % 4.5 %; Hematocrit 39.2 % (37.0-47.0); Hemoglobin 12.7 g/dL (11.5-15.3); Lymphocytes % 8.5 %; Mean Corpuscular HGB Conc 32.4 g/dL (30.0-36.0); Mean Corpuscular Hemoglobin 28.2 pg (28.0-34.0); Mean Corpuscular Volume 87.1 fL (81-99); Mean Platelet Volume 10.1 fL (7.4-10.4); Monocytes # 1.3 10^3/uL (0.2-0.9); Monocytes % 10.8 %; Neutrophils # 8.92 10^3/uL (1.8-7.7); Neutrophils % 75.5 %; Nucleated Red Blood Cells % 0 %; Platelet Count 352 10^3/cmm (130-400); Red Cell Distribution Width 13.9 % (12.1-15.1); White Blood Count 11.8 10^3/uL (4.0-10.0)
[2020-03-05 06:02] VITALS: BP 99/54; PULSE 75; RESP 19; O2SAT 95
[2020-03-05 06:05] LABS: INR 0.98 (0.8-1.2)
[2020-03-05 06:06] LABS: Fibrinogen 410 mg/dL (174-498)
[2020-03-05 06:09] LABS: Lactic Sepsis W/Reflex 1.1 mmol/L (0.5-2.2)
[2020-03-05 06:15] LABS: Procalcitonin 0.03 ng/mL (0-0.5)
[2020-03-05 06:26] LABS: Alanine Aminotransferase 9 U/L (0-33); Albumin Level 3.8 g/dL (3.5-5.2); Alkaline Phosphatase 88 IU/L (35-105); Aspartate Amino Transferase 12 U/L (0-32); Blood Urea Nitrogen 7 mg/dL (6-20); C Reactive Protein 61.6 mg/L (0.0-4.9); Calcium 8.7 mg/dL (8.5-10.5); Carbon Dioxide 22 mmol/L (22-29); Chloride 106 mmol/L (98-107); Globulin 2.7 g/dL (1.3-4.6); Glucose 106 mg/dL (65-115); Lactate Dehydrogenase 173 U/L (135-214); Magnesium 1.9 mg/dL (1.7-2.3); Osmolality Calculated 282 mOsm/kg (285-295); Sodium 137 mmol/L (136-145); Total Bilirubin 0.6 mg/dL (0.15-1.2); Total Protein 6.5 g/dL (6.6-8.7)
[2020-03-05 06:35] LABS: Influenza A by IFA Negative (Negative); Influenza B by IFA Negative (Negative)
[2020-03-05 06:35] LABS: SARS Covid-2 Antigen Negative (Negative)
[2020-03-05 08:03] VITALS: BP 117/63; PULSE 84; RESP 18; O2SAT 98
[2020-03-06 13:39] LABS: Quest SARS-CoV-2 RNA NOT DETECTED (NOT DETECTED)
--- NOTE | 2020-03-06 16:14 | PC.NURSE ---
attempted to reach pt regarding her COvid test. Message was left on her life partners phone.
== END 2020-03-05 07:58 | disposition home or self-care (01) ==
PROVIDERS: Emergency Medicine; Emergency Provider Family Medicine; PCP Nurse Practitioner
DX: J44.1 Chronic obstructive pulmonary disease with (acute) exacerbation (principal); Z87.891 Personal history of nicotine dependence
CPT/HCPCS: 12345; 36600; 71045; 80053; 82803; 83605; 83615; 83735; 84145; 85025; 85378; 85384; 85610; 86140; 87426; 87635; 87804; 93005; 94640; 96361; 96374; 99282; 99284; J1100; J3535; J7030

== ENCOUNTER → 2020-03-21 08:09 | Outpatient (BNVA) | payer BC, MEDICAID, SELFPAY | PROVIDERS: PCP Nurse Practitioner; Visit Provider Nurse Practitioner | DX: F41.0 Panic disorder [episodic paroxysmal anxiety] (principal); F41.1 Generalized anxiety disorder; F33.1 Major depressive disorder, recurrent, moderate | CPT/HCPCS: 99214 ==

== ENCOUNTER 2020-06-15 08:39 | Emergency (ER) | payer BC, MEDICAID, SELFPAY ==
[2020-06-15 08:43] VITALS: BP 125/74; PULSE 87; RESP 16; TEMP 36; O2SAT 96; BMI 17.9
--- NOTE | 2020-06-15 08:48 | ED_ITS ---
HPI - URI/Sore Throat General: Chief Complaint: Upper Respiratory Infection Stated Complaint: SINUS ISSUES Time Seen by Provider: 06/15/20 08:42 Source: patient Mode of arrival: ambulatory Limitations: no limitations History of Present Illness: HPI Narrative: Patient is a 45-year-old female with a history of COPD, emphysema, asthma, allergic rhinitis here with a complaint of nasal congestion, sinus pain, postnasal drainage, and a productive cough over the past few days. Patient not been running fevers. She follows up with Dr. Torres but is also seen Dr. Boucher (pulmonology) for her COPD. She states she has had to use her albuterol inhaler more frequently. She takes Singular daily for allergies. Patient states I just don't want it to get down in my lungs . MD elicited complaint: cough, nasal congestion and sinus pain Pertinent past history: COPD, asthma and seasonal allergies Onset (ago): day(s) Consistency: constant Severity: moderate Description of mucous: yellow Able to tolerate fluids by mouth: Yes Exacerbating factors: nothing Relieving factors: nothing Associated symptoms: Reports no associated symptoms, nasal congestion and sinus pain; Deny chills, chest pain, ear or mastoid pain, fever(s), headache(s), nausea or vomiting Treatments prior to arrival: none Review of Systems Const: Denies: fever(s) or chills Eyes: Denies: change in vision or blurry vision ENMT: Reports: nasal discharge, nasal congestion, post nasal drip and sinus pain; Denies: throat pain, odynophagia or ear or mastoid pain Card: Denies: chest pain, palpitations or irregular heart rhythm Resp: Reports: dyspnea (mild), productive cough, change in phlegm color and chest congestion; Denies: pain on inspiration or hemoptysis GI: Denies: nausea or vomiting Musc: Denies: neck pain Skin/Breast: Denies: rash Neuro: Denies: headache(s) PFSH ED PFSH: Medical History Generalized anxiety disorder Moderate episode of recurrent major depressive disorder Panic disorder [episodic paroxysmal anxiety] Social History (Updated 05/17/20 @ 09:07 by Gabriel Fernandez LPN) Smoking and tobacco status: current every day smoker cigarettes Years cigarettes smoked: 30 [ Other cigarette details: [id number] ] Quit status (tobacco): considering quitting Second hand smoke exposure: Yes Smoking risk assessment/counseling performed?: Yes Alcohol intake: current Alcohol intake frequency: holidays/special occasions only Desire information about alcohol rehabilitation?: No Counseling given: No Lives independently: Yes Household members: children Housing: House Marital status: Single Current occupational status: unemployed Pets and animals: No History of recent travel: No Current gender identity: Female Female Reproductive History: Date of last menstrual period: 05/10/20 Physical Exam Const: COMMON NORMALS: no acute distress, average body habitus, patient oriented x3, no limitations, healthy appearing, alert and well nourished GENERAL APPEARANCE: cooperative ORIENTATION/CONSCIOUSNESS: Yes awake, Yes oriented to person, Yes oriented to place and Yes oriented to time HENMT: COMMON NORMALS: normocephalic, atraumatic, hearing grossly normal bilaterally, external ears normal, EAC's normal, TM's normal bilaterally, Normal external nose present, Normal nasal mucous membranes and turbinates present, moist oral mucous membranes and oropharynx normal HEAD & SCALP: normal to inspection, normocephalic and atraumatic FACE & SINUS: sinus tenderness maxillary NOSE: Normal external nose present and Normal nasal mucous membranes and turbinates present EXTERNAL EAR: Yes external ears normal EXTERNAL AUDITORY CANAL: EAC's normal TYMPANIC MEMBRANE: TM's normal bilatera lly MOUTH: Normal oral and palatal mucosa present, lip normal and tongue normal THROAT: posterior oropharynx normal, tonsils normal and uvula midline Neck/C-Spine: COMMON NORMALS: no lymphadenopathy Resp: COMMON NORMALS: normal respiratory effort and clear to auscultation bilaterally AUSCULTATION: clear to auscultation bilaterally Cardio: COMMON NORMALS: regular rate and regular rhythm RATE: regular rate RHYTHM: regular rhythm Neuro: COMMON NORMALS: patient oriented x3 SENSORIUM/ORIENTATION: Yes alert, Yes oriented to person, Yes oriented to place and Yes oriented to time Course Vital Signs: Vital signs: Vital Signs Temperature 96.8 F L 06/15/20 08:43 Pulse Rate 87 06/15/20 08:43 Respiratory Rate 16 06/15/20 08:43 Blood Pressure 125/74 06/15/20 08:43 Pulse Oximetry 96 06/15/20 08:43 MDM - URI/Sore Throat MDM Narrative: Medical decision making narrative: Patient clinically appears in no acute distress. Her vital signs are stable. I do not see any indication for emergent labs currently as this is unlikely to change my management. CXR showing no acute findings. Will place her on doxycycline and recommend she follow-up with PCP or paperhanger apprentice if symptoms do not improve. Imaging Data^: CXR: Radiologist's impression: [address] [place] [address] XRay Report Signed Patient: Nadia Galeas Unit #: [id number] : [id number] Age/Sex: 45 / F ADM Date: 06/15/20 Loc: ER Room/Bed: Attending Dr: Ordering Provider/Ordering MD: Nadia Whiting Date of Service: 06/15/20 Procedure(s): XR chest 1V portable 75089 Accession Number(s): [id number] Report Number: [id number] WS: [id number] Portable AP upright chest, 06/15/2020 Clinical Data: cough, COPD, SOB Comparison: Portable chest, 03/05/2020. Findings: No nodules, masses or effusions are seen. The heart is normal. The pulmonary vascularity is not increased. No pneumonia or pneumothorax is seen. The diaphragms are flattened. Bilateral upper lobe and apical scarring remain the same. XR/XR chest 1V portable [id number] Impression: Hyperinflation and chronic upper lobe fibrotic change. Dictated By: Cheryl Tejeda MD Signed By: Cheryl Tejeda MD Signed Date/Time: 06/15/20930 DD/ 9 Discharge Plan Discharge Patient Disposition: Home Clinical Impression: Bronchitis Condition: Stable Prescriptions: New doxycycline monohydrate 100 mg capsule 100 mg PO Q12H 10 Days Qty: 20 RF: 0 No Action nicotine 14 mg/24 hr patch 24 hour 1 patch transdermal DAILY RF: 0 budesonide-formoterol [Symbicort] 160-4.5 mcg/actuation HFA aerosol inhaler 2 puff inhalation BID Qty: 10.2 RF: 3 venlafaxine 75 mg capsule,extended release 24hr 75 mg PO DAILY Qty: 30 RF: 0 venlafaxine 150 mg capsule,extended release 24hr 150 mg PO DAILY Qty: 30 RF: 0 mirtazapine 15 mg tablet 15 mg PO .HS Qty: 30 RF: 1 prazosin 1 mg capsule 3 mg PO BEDTIME Qty: 90 RF: 1 clonazepam 0.5 mg tablet 0.5 mg PO BID PRN (Reason: anxiety) Qty: 60 RF: 1 montelukast 5 mg tablet,chewable 5 mg PO DAILY RF: 0 fluticasone propionate 50 mcg/actuation [place],Suspension See Rx Instructions .ROUTE .COMPLEX RF: 0 Spiriva with HandiHaler 18 mcg Capsule, W/Inhalation Device 1 cap INHALATION DAILY RF: 0 albuterol sulfate 2.5 mg /3 mL (0.083 %) solution for nebulization 2.5 mg inhalation Q4H PRN (Reason: shortness of breath or wheezing) Qty: 90 RF: 0 Discharge Orders: Discharge ED (Routine); Ordered 06/15/20 Ordered By: Nadia Whiting Referrals: Cheryl Veronica FNP [Primary Care Provider] - Patient Instructions: Acute Bronchitis (ED), Chronic Bronchitis (ED) Coding Level of Care Code ED Seal Delivery Vehicle Team Technician for Chg Fwd Exam Detailed
--- NOTE | 2020-06-15 08:55 | XR_ITS ---
WS: [id number] Portable AP upright chest, 06/15/2020 Clinical Data: cough, COPD, SOB Comparison: Portable chest, 03/05/2020. Findings: No nodules, masses or effusions are seen. The heart is normal. The pulmonary vascularity is not increased. No pneumonia or pneumothorax is seen. The diaphragms are flattened. Bilateral upper l obe and apical scarring remain the same. XR/XR chest 1V portable [id number] Impression: Hyperinflation and chronic upper lobe fibrotic change.
== END 2020-06-15 09:21 | disposition home or self-care (01) ==
PROVIDERS: Emergency Provider Physician Assistant; PCP Nurse Practitioner Family
DX: J40 Bronchitis, not specified as acute or chronic (principal); F17.210 Nicotine dependence, cigarettes, uncomplicated
CPT/HCPCS: 71045; 99282

== ENCOUNTER 2020-07-21 15:28 | Emergency (ER) | payer BC, MEDICAID, SELFPAY ==
[2020-07-21 15:48] VITALS: BP 104/65; PULSE 98; RESP 16; TEMP 36.7; O2SAT 99; BMI 17.3
--- NOTE | 2020-07-21 16:57 | USR_ITS ---
PROCEDURE INFORMATION: Exam: US Nonobstetric Pelvis; Complete Exam date and time: 07/21/2020 5:22 PM Age: 45 years old Clinical indication: Other: Bleeding; Prior surgery; Surgery date: 6+ months; Surgery type: PT has had 2 c-sections, multiple d&c and a tubal; Additional info: Menomettorhagia TECHNIQUE: Imaging protocol: Transabdominal pelvic nonobstetric ultrasound. Complete exam. Real time ultrasound with image documentation. Total images: 63 COMPARISON: No relevant prior studies available. FINDINGS: Uterus/cervix: Anteverted nongravid multiparous appearing uterus dimensions 7.1 cm x 3.5 cm x 5 cm. Endometrial stripe measures 4 mm. Tiny sliver of free fluid within the endometrial cavity of indeterminate clinical significance. Normal transition zone. Remainder of the endometrium with homogeneous echotexture. Right adnexa: Right ovary contains a dominant simple appearing physiologic cyst that measures 3.5 cm in maximum diameter. Maximum measured length of the right ovary 5.1 cm including the cyst. Positive arterial flow to color Doppler assessment. No visible right adnexal mass or cystic structure. Left adnexa: Left ovary unremarkable measuring 1.8 cm x 1.6 cm x 1.8 cm. Positive arterial flow to color Doppler assessment. No visible left adnexal mass or cystic lesion. Intraperitoneal space: No visible significant free fluid the cul-de-sac. Urinary bladder: Unremarkable as visualized. US/US pelvic with transvaginal IMPRESSION: 1. No sonographic evidence for acute pelvic pathology. 2. Right ovary contains a dominant simple appearing physiologic cyst that measures 3.5 cm in maximum diameter. 3. Anteverted nongravid multiparous appearing uterus with normal endometrial stripe at 4 mm. 4. Tiny sliver of free fluid in the endometrial cavity of indeterminate clinical significance.
[2020-07-21 17:43] LABS: Basophils # 0.1 10^3/uL (0.0-0.1); Basophils % 0.8 %; Eosinophils # 0.1 10^3/uL (0.0-0.8); Eosinophils % 1.3 %; Hematocrit 40.8 % (37.0-47.0); Hemoglobin 13.1 g/dL (11.5-15.3); Lymphocytes # 2.1 10^3/uL (0.8-4.8); Lymphocytes % 29.5 %; Mean Corpuscular HGB Conc 32.1 g/dL (30.0-36.0); Mean Corpuscular Hemoglobin 28.4 pg (28.0-34.0); Mean Corpuscular Volume 88.5 fL (81-99); Mean Platelet Volume 10.2 fL (7.4-10.4); Monocytes # 0.5 10^3/uL (0.2-0.9); Monocytes % 7.6 %; Neutrophils # 4.28 10^3/uL (1.8-7.7); Neutrophils % 60.5 %; Nucleated Red Blood Cells % 0 %; Platelet Count 356 10^3/cmm (130-400); Red Blood Count 4.61 10^6/uL (4.1-5.3); Red Cell Distribution Width 14.1 % (12.1-15.1); White Blood Count 7.1 10^3/uL (4.0-10.0)
[2020-07-21 18:04] LABS: Alanine Aminotransferase 7 U/L (0-33); Albumin Level 4.1 g/dL (3.5-5.2); Alkaline Phosphatase 62 IU/L (35-105); Aspartate Amino Transferase 15 U/L (0-32); Blood Urea Nitrogen 9 mg/dL (6-20); Calcium 8.5 mg/dL (8.5-10.5); Carbon Dioxide 22 mmol/L (22-29); Chloride 103 mmol/L (98-107); Globulin 2.8 g/dL (1.3-4.6); Glomerular Filtration Rate 77.6 mL/min (90-130); Glucose 116 mg/dL (65-115); Osmolality Calculated 280 mOsm/kg (285-295); Sodium 135 mmol/L (136-145); Total Bilirubin 0.3 mg/dL (0.15-1.2); Total Protein 6.9 g/dL (6.6-8.7)
[2020-07-21 18:21] VITALS: BP 140/78; PULSE 63; O2SAT 98
--- NOTE | 2020-07-21 19:37 | W.ED.FEMALGU ---
HPI - Female Genitourinary General: Source: patient Mode of arrival: ambulatory Limitations: no limitations History of Present Illness: HPI Narrative: Last menses 2 weeks ago during that time developed some discomfort in and around the vagina. Treated with [id number] Monistat as patient assumed it was a yeast infection. Bleeding started within the last 48 hours. Changing pad roughly every 2 hours. Denies pelvic pain MD elicited complaint: possible STD (New sexual partner in the last 3 to 4 weeks.) Pertinent past history: tubal ligation Onset (ago): day(s) (2) Location of symptoms: external genitalia and vaginal Severity: moderate Consistency: constant Vaginal discharge: none Vaginal bleeding: moderate and bright red Associated symptoms: Reports vaginal bleeding Treatment prior to arrival: other (Monistat) Patient : No Date of Last Menstrual Period: 07/08/19 Related Data: : 8 Para: 4 Total number of abortions (spontaneous and elective): 4 Review of Systems General: Reports: 10 or more systems reviewed and unremarkable except in HPI and below : Reports: vaginal bleeding and metrorrhagia PFS ED PFSH: Medical History Generalized anxiety disorder Moderate episode of recurrent major depressive disorder Panic disorder [episodic paroxysmal anxiety] Social History (Updated 05/17/20 @ 09:07 by Gabriel Fernandez LPN) Smoking and tobacco status: current every day smoker cigarettes Years cigarettes smoked: 30 [ Other cigarette details: [id number] ] Quit status (tobacco): considering quitting Second hand smoke exposure: Yes Smoking risk assessment/counseling performed?: Yes Alcohol intake: current Alcohol intake frequency: holidays/special occasions only Desire information about alcohol rehabilitation?: No Counseling given: No Lives independently: Yes Household members: children Housing: House Marital status: Single Current occupational status: unemployed Pets and animals: No History of recent travel: No Current gender identity: Female Female Reproductive History: Date of last menstrual period: 07/08/19 : 8 Physical Exam Const: COMMON NORMALS: no acute distress, average body habitus and patient oriented x3 NUTRITIONAL APPEARANCE: thin Eye: COMMON NORMALS: Equal, round and reactive pupils present and EOMs intact bilaterally PUPIL: Yes Equal, round and reactive pupils present Lymph: LYMPHATIC: no lymphadenopathy noted Resp: COMMON NORMALS: normal respiratory effort, No retractions, No use of accessory muscles and clear to auscultation bilaterally AUSCULTATION: clear to auscultation bilaterally Cardio: COMMON NORMALS: regular rate, regular rhythm, S1 normal heart sound present and S2 normal heart sound present RATE: regular rate RHYTHM: regular rhythm HEART SOUNDS: S1 normal heart sound present and S2 normal heart sound present GI: COMMON NORMALS: Normal to inspection, nondistended, normoactive bowel sounds present : COMMON NORMALS: Yes no CVA tenderness, Yes normal external appearance, Yes normal appearance of the vagina, Yes normal appearance of the cervix, Yes normal bimanual exam, Yes No adnexal tenderness and Yes no masses BLADDER/KIDNEY EXAM: Yes bladder normal to palpation and Yes no CVA tenderness EXTERNAL FEMALE EXAM: Yes normal appearance of the urethra SPECULUM EXAM - VAGINA: Yes vaginal bleeding Amount: medium/moderate SPECULUM EXAM - CERVIX: Yes Cervical os open and Yes Cervical tenderness present BIMANUAL EXAM - VAGINA & UTERUS: Yes normal bimanual exam, Yes Cervical tenderness present and Yes bladder normal to palpation BIMANUAL EXAM - ADNEXA, OTHER: Yes normal rectovaginal exam RECTO-VAGINAL: normal rectovaginal exam OB/EXTERNAL & SPECULUM: Cervical os open and vaginal bleeding Back/Pelvis: COMMON NORMALS: no CVA tenderness and thoracic and lumbar spine normal to inspection Neuro: COMMON NORMALS: patient oriented x3 Skin: COMMON NORMALS: no rashes or lesions noted, no wounds and turgor normal GENERAL SKIN EXAM: no rashes or lesions noted and turgor normal Course ED course: Vaginal bleeding beginning the last 48 hours, last menstrual cycle 2 weeks ago typically has fairly regular menstrual cycles. Currently saturating 1 pad every 2 hours. New sexual partner in the last month. No known history of STDs. Not concerned with related to tubal ligation. Unknown last pelvic exam previously was patient of Dr. Singer's for women health needs. Reevaluation(s): Reevaluation #1: Clue cells present consistant with BV. Will treat accordingly with flagyl follow up with women's health. Vital Signs: Vital signs: Vital Signs Temperature 98.0 F 07/21/20 15:48 Pulse Rate 63 07/21/20 18:21 Respiratory Rate 16 07/21/20 15:48 Blood Pressure 140/78 07/21/20 18:21 Pulse Oximetry 98 07/21/20 18:21 MDM - Female Lab Data: Labs: Lab Results 07/21/20 07/21/20 07/21/20 Range/Units 17:28 17:28 20:14 WBC 7.1 (4.0-10.0) 10^3/ uL RBC 4.61 (4.1-5.3) 10^6/u L Hgb 13.1 (11.5-15.3) g/dL Hct 40.8 (37.0-47.0) % MCV 88.5 (81-99) fL MCH 28.4 (28.0-34.0) pg MCHC 32.1 (30.0-36.0) g/dL RDW 14.1 (12.1-15.1) % Plt Count 356 (130-400) 10^3/c mm MPV 10.2 (7.4-10.4) fL Neut % (Auto) 60.5 % Lymph % (Auto) 29.5 % [place] % (Auto) 7.6 % Eos % (Auto) 1.3 % Baso % (Auto) 0.8 % Neut # (Auto) 4.28 (1.8-7.7) 10^3/u L Lymph # (Auto) 2.1 (0.8-4.8) 10^3/u L [place] # (Auto) 0.5 (0.2-0.9) 10^3/u L Eos # (Auto) 0.1 (0.0-0.8) 10^3/u L Baso # (Auto) 0.1 (0.0-0.1) 10^3/u L Nucleated RBC % (a uto) 0 % Nucleated RBCs # 0.0 /100WBC Sodium 135 L (136-145) mmol/L Potassium 4.0 (3.5-5.1) mmol/L Chloride 103 (98-107) mmol/L Carbon Dioxide 22 (22-29) mmol/L Anion Gap 14.0 (5-19) BUN 9 (6-20) mg/dL Creatinine 0.8 (0.5-0.9) mg/dL GFR Calculation 77.6 L (90-130) mL/min Glucose 116 H (65-115) mg/dL Calculated Osmolal ity 280 L (285-295) mOsm/k g Calcium 8.5 (8.5-10.5) mg/dL Total Bilirubin 0.3 (0.15-1.2) mg/dL AST 15 (0-32) U/L ALT 7 (0-33) U/L Alkaline Phosphata se 62 (35-105) IU/L Total Protein 6.9 (6.6-8.7) g/dL Albumin 4.1 (3.5-5.2) g/dL Globulin 2.8 (1.3-4.6) g/dL Urine Color Yellow (Yellow) Urine Appearance Clear (CLEAR) Urine pH 5 (5-7) Ur Specific Gravit y 1.015 (1.005-1.030) Urine Protein Neg (Negative) Urine Glucose (UA) Norm (Normal) Urine Ketones Negative (Negative) Urine Blood 3+ H (Negative) Urine Nitrate Negative (Negative) Urine Bilirubin Neg (Negative) Urine Urobilinogen Norm (Negative) mg/dL Ur Leukocyte Blanca ase Negative (Negative) Urine RBC 0-4 H (0-2) /hpf Urine WBC 0-4 H (0-5) /hpf Ur Squamous Epith Cells 10-15 H (0-5) /hpf Amorphous Sediment Not Reportable Urine Bacteria 1+ H (NONE) /hpf Urine Mucus Trace /hpf Imaging Data: US: Radiologist's impression: 1. No sonographic evidence for acute pelvic pathology. 2. Right ovary contains a dominant simple appearing physiologic cyst that measures 3.5 cm in maximum diameter. 3. Anteverted nongravid multiparous appearing uterus with normal endometrial stripe at 4 mm. 4. Tiny sliver of free fluid in the endometrial cavity of indeterminate clinical significance. Discharge Plan Discharge Patient Disposition: Home Clinical Impression: Abnormal uterine and vaginal bleeding, unspecified Condition: Stable Prescriptions: No Action budesonide-formoterol [Symbicort] 160-4.5 mcg/actuation HFA aerosol inhaler 2 puff inhalation BID Qty: 10.2 RF: 3 venlafaxine 75 mg capsule,extended release 24hr 75 mg PO DAILY Qty: 30 RF: 0 venlafaxine 150 mg capsule,extended release 24hr 150 mg PO DAILY Qty: 30 RF: 0 prazosin 1 mg capsule 3 mg PO BEDTIME Qty: 90 RF: 1 clonazepam 0.5 mg tablet 0.5 mg PO BID PRN (Reason: anxiety) Qty: 60 RF: 1 montelukast 5 mg tablet,chewable 5 mg PO DAILY RF: 0 fluticasone propionate 50 mcg/actuation [place],Suspension See Rx Instructions .ROUTE .COMPLEX RF: 0 Spiriva with HandiHaler 18 mcg Capsule, W/Inhalation Device 1 cap INHALATION DAILY RF: 0 albuterol sulfate 2.5 mg /3 mL (0.083 %) solution for nebulization 2.5 mg inhalation Q4H PRN (Reason: shortness of breath or wheezing) Qty: 90 RF: 0 ProAir HFA 90 mcg/actuation Hfa Aerosol Inhaler 2 puff INHALATION Q6H PRN (Reason: Shortness Of Breath) RF: 0 mirtazapine 15 mg tablet 15 mg PO BEDTIME RF: 0 Discharge Orders: Discharge ED (Routine); Ordered 07/22/20 Ordered By: Destiny Gomez Referrals: Cheryl Veronica FNP [Primary Care Provider] - Balbir Mccrary MD [Physician] - 7-10 days (Next available appointment) Discharge Diet: Usual diet Discharge Activity: Resume usual activity Patient Instructions: Opioid Safety Coding Level of Care Code ED Freelance Makeup Artist for Chg Fwd Exam Comprehensive
[2020-07-21 21:41] LABS: Add Urine Microscopic? YES; Bacteria Urine 1+ /hpf; Bilirubin Urine Neg (Negative); Blood Urine 3+ (Negative); Glucose Urine UA Norm (Normal); Ketones Urine Negative (Negative); Leukocyte Esterase Urine Negative (Negative); Mucus Urine TRACE /hpf; Nitrate Urine Negative (Negative); Protein Urine Neg (Negative); RBC Urine 0-4 /hpf (0-2); Specific Gravity, Urine 1.015 (1.005-1.030); Urine Appearance Clear (CLEAR); Urine Color Yellow (Yellow); Urobilinogen Urine Norm (Negative); WBC Urine 0-4 /hpf (0-5); pH Urine 5 (5-7)
--- NOTE | 2020-07-22 15:38 | DCPLANNER ---
wildlife manager had message to schedule a follow up appointment for patient with [facility]. wildlife manager called [facility], spoke with Dustin, gave clinic patients information. wildlife manager was told that patients information would be printed and reviewed. Clinic will call patient with appointment information.
--- NOTE | 2020-08-03 14:32 | DCPLANNER ---
Patient has a follow up appointment scheduled for Wednesday, September 02, [address] at 9:[address] Santana. Clinic will call patient with appointment information.
--- NOTE | 2020-10-04 11:46 | DCPLANNER ---
Patient had a follow up appointment scheduled for 09.02.20 with [facility] - appointment was cancelled.
== END 2020-07-21 22:21 | disposition home or self-care (01) ==
PROVIDERS: Family Medicine; Emergency Provider Nurse Practitioner Family; PCP Nurse Practitioner Family
DX: N93.9 Abnormal uterine and vaginal bleeding, unspecified (principal); F17.210 Nicotine dependence, cigarettes, uncomplicated
CPT/HCPCS: 36415; 76830; 76856; 80053; 81001; 85025; 87210; 87491; 87591; 87661; 99283

== ENCOUNTER → 2020-08-01 13:10 | Outpatient (BNVA) | payer BC, SELFPAY | PROVIDERS: PCP Nurse Practitioner Family; Visit Provider Nurse Practitioner | DX: F41.1 Generalized anxiety disorder (principal); F33.1 Major depressive disorder, recurrent, moderate; F41.0 Panic disorder [episodic paroxysmal anxiety] | CPT/HCPCS: 99214 ==